=== PATIENT | female | born 1945 | race African-American/Black ===

== ENCOUNTER 2016-06-30 11:04 | Emergency (ER) | payer OTHER ==
[~2016-06-30 11:04] MED LIST: ADVAIR INH; FELODIPINE 10 MG OR; FISH-EPA1000 MG PO; HERBS; IBU800 PO; KADIANSR30 PO; LORTAB10 PO; MULTIVITAMI1 PO; PRILO PO; SPIRIVA INH; ZANAFLEX2 MG PO
[2016-06-30 12:35] LABS: BASOPHILS 0.3 %; BASOPHILS ABSOLUTE 0.02 10/3/uL (0.0-0.16); EOSINOPHILS 2.4 %; EOSINOPHILS ABSOLUTE 0.15 10/3/uL (0.0-0.53); HEMATOCRIT 34.2 % (36.0-48.0); HEMOGLOBIN 11.1 g/dL (12.0-16.0); IMMATURE GRANULOCYTES 0.2 %; IMMATURE GRANULOCYTES ABSOLUTE 0.01 10/3/uL (0.0-0.11); LYMPHOCYTES 37.4 %; LYMPHOCYTES ABSOLUTE 2.29 10/3/uL (0.67-4.30); MANUAL DIFF NO %; MEAN CORPUS HGB CONC 32.5 g/dL (32.0-36.0); MEAN CORPUSCULAR HEMOGLOB 25.2 pg (26.0-34.0); MEAN CORPUSCULAR VOLUME 77.6 fL (80-100); MEAN PLATELET VOLUME 9.8 fL (9.2-13.0); MONOCYTES 9.6 %; MONOCYTES ABSOLUTE 0.59 10/3/uL (0.21-1.20); NEUTROPHILS 50.1 %; NEUTROPHILS ABSOLUTE 3.07 10/3/uL (2.02-8.40); PLATELET COUNT 303 10/3/uL (150-400); RBC DISTRIBUTION WIDTH 13.9 % (12.0-16.0); RED CELL COUNT 4.41 10/6/uL (4.0-5.6); WHITE BLOOD CELLS 6.1 10/3/uL (4.5-10.5)
[2016-06-30 12:42] LABS: PARTIAL THROMBO TIME 31.2 SEC (22.5-37.2); PROTIME (NOT ORD) 13.2 SEC (12.0-14.5)
[2016-06-30 12:50] LABS: BUN (BLOOD UREA NITROGEN) 13 MG/DL (6-23); CALCIUM, SERUM 8.8 MG/DL (8.5-10.4); CHEST PAIN PROFILE TAT 0 Hrs 19 Mins; CHLORIDE, SERUM 105 MMOL/L (96-112); CO2 (CARBON DIOXIDE) 27 MMOL/L (24-34); CREATININE 0.73 MG/DL (0.55-1.02); GFR AFRICAN AMERICAN 97 ML/MIN (>=60); GFR NON AFRICAN AMERICAN 83 ML/MIN (>=60); GLUCOSE, SERUM 104 MG/DL (60-99); SODIUM, SERUM 142 MMOL/L (135-148); TROPONIN I <0.02 NG/ML (<0.05)
[2016-06-30 12:52] LABS: POTASSIUM, SERUM 3.5 MMOL/L (3.5-5.3)
== END 2016-06-30 14:40 | disposition home or self-care (01) ==
LOC: ER 11:04
PROVIDERS: Emergency Medicine
DX: J18.9 Pneumonia, unspecified organism (principal); I10 Essential (primary) hypertension; Z88.5 Allergy status to narcotic agent; Z79.899 Other long term (current) drug therapy
CPT/HCPCS: 71010; 80048; 83735; 84484; 85025; 85610; 85730; 93005; 96374; 96375; 99284; J0456; J2930